=== PATIENT | male | born 1975 | race Caucasian/White ===

== ENCOUNTER 2020-07-01 06:06 | Outpatient (REF) | payer OTHER, SELFPAY | END 2020-07-01 06:07 | disposition home or self-care (01) | LOC: HO.LAB 06:06 | PROVIDERS: Visit Provider Internal Medicine | DX: Z20.828 Contact with and (suspected) exposure to other viral communicable diseases (principal) | CPT/HCPCS: C9803; U0003 ==

== ENCOUNTER 2022-01-31 21:46 | Emergency (ER) | payer BC, SELFPAY ==
--- NOTE | ~2022-01-31 | XR_ITS ---
EXAMINATION: XR HAND, RIGHT CLINICAL INFORMATION: Injury COMPARISON: None TECHNIQUE: PA, lateral, and oblique views of the right hand. FINDINGS: No acute fracture or dislocation. Nonspecific soft tissue prominence and/or swelling overlying the dorsal aspect of the fifth PIP joint. Correlate with exam. Small cysts noted in the triquetrum with sclerotic rims. Mild subchondral sclerosis and small osteophytes at the first CMC joint compatible with mild osteoarthritis. Joint spaces at the wrist are maintained. No chondrocalcinosis. MCP joint spaces are maintained. Mild marginal osteophyte formation/osteoarthritic change at the thumb IP joint, third DIP joint and fifth DIP joint. XR/XR hand RT 2V IMPRESSION: 1. No acute fracture or dislocation. 2. Soft tissue prominence/swelling overlying the dorsal aspect of the fifth PIP joint. Correlate with exam. 2. Mild osteoarthritic changes, as described.
[2022-01-31] MEDS: Ibuprofen 600 MG TABLET PO (21:59)
[2022-01-31 22:54] VITALS: BP 119/83; PULSE 67; RESP 18; TEMP 36.6; O2SAT 97; BMI 23.5
--- NOTE | 2022-01-31 23:58 | ED_ITS ---
HPI - Extremity Problem General Chief complaint: Extremity Injury, Upper Stated complaint: finger injury Time Seen by Provider: 01/31/22 23:49 Source: patient Mode of arrival: ambulatory History of Present Illness HPI Narrative: 46-year-old female with no significant past medical history presenting to the ED complaining of crush injury to right hand s/p using crowbar doing yard work and hand getting caught between bar and railing. Reports incident happened around 13:00. Reports small cut to right pinky. Denies numbness, tingling, weakness, decreased ROM, fever, retained foreign body. Tetanus up-to-date MD Complaint: extremity pain and extremity swelling Onset (ago): hour(s) Pain Consistency: constant Related Data Allergies Allergy/AdvReac Type Severity Reaction Status Date / Time No Known Allergies Allergy Unverified 05/07/20 15:49 Review of Systems Review of Systems: Constitutional: No Fever, No Chills ENT/Mouth: No Ear Pain, No Nasal Congestion, No sore throat, No Rhinorrhea, No Swallowing Difficulty Cardiovascular: No Chest Pain, No SOB Respiratory: No Cough, No Sputum Gastrointestinal: No Nausea, No Vomiting, No Diarrhea, No Constipation, No Abdominal pain Genitourinary: No Dysuria, No Hematuria, No Flank Pain Musculoskeletal: + joint pain, No Myalgias, + Joint Swelling Skin: + Skin Lesions, No rash Neuro: No Weakness, No Numbness, No Paresthesias Yes all other systems are reviewed and are negative [facility] Past Medical History Attestation statement: The following information was validated with the patient. Physical Exam Vital Signs: Vital Signs: Last Vital Signs Temp 97.8 F 01/31/22 22:54 Pulse 67 01/31/22 22:54 Resp 18 01/31/22 22:54 BP 119/83 01/31/22 22:54 Pulse Ox 97 01/31/22 22:54 O2 Del Method 01/31/22 22:54 BMI result Body Mass Index 23.5 Const: General: cooperative, healthy appearing, no acute distress, well developed, alert and awake Orientation/consciousness: patient oriented x3 Limitations: no limitations HEENT: Head: Yes normal to inspection and Yes atraumatic Ears: hearing grossly normal bilaterally General nose exam: Normal external nose present Face and sinus: Yes normal facial exam Eyes: General: appearance normal, both eyes and all related structures EOM: EOMs intact bilaterally Neck: Neck: Yes normal visual inspection and Yes no meningeal signs Resp: Effort & Inspection: normal respiratory effort and no respiratory distress Cardio: Rate: regular rate Heart sounds: S1 normal heart sound present and S2 normal heart sound present Peripheral pulses: radial pulses present Skin: Rashes: no rashes Neuro: General: patient oriented x3, tone normal and no meningeal signs Gait exam (Neuro): Normal gait present Extrem: Other: Right 5th digit with noted swelling and small 0.5cm laceration to the palmar aspect proximal to PIP. Tender to palpation. Full range of motion to digit/all digits and [id number] opposition intact. Cap refill WNL. Sensation intact to light touch. No snuffbox tenderness or wrist tenderness Course Course Course Narrative: XR hand RT 2V IMPRESSION: ? 1. No acute fracture or dislocation. 2. Soft tissue prominence/swelling overlying the dorsal aspect of the fifth PIP joint. Correlate with exam. 2. Mild osteoarthritic changes, as described. > results discussed with patient. Steri-Strips applied to small laceration MDM - Extremity (Nontraumatic) MDM Narrative Medical decision making narrative: 46-year-old female with no significant past medical history presenting to the ED complaining of crush injury to right hand s/p using crowbar doing yard work and hand getting caught between bar and railing. On exam vital signs stable, NAD, nontoxic appearing, physical exam as above. Concern for crush injury including fracture vs open fracture vs sprain vs contusion Plan: X-rays, Steri-Strips wound Medical Records Attestation: I reviewed the patient's medical records. Lab Data Attestation: I reviewed the patient's lab results. Discharge Plan Discharge Clinical Impression: Crush injury to finger, Laceration of finger Patient Disposition: Home, Self-Care Instructions: Finger Laceration (ED), Crush Injury (ED) Additional Instructions: Your x-ray does not show any fracture or dislocation. You do have osteoarthritic changes in your hand. Keep Steri-Strips on, dry and clean. If cut begins to look infected, there is redness around, drainage or you fever please return to the emergency department Referrals: Kiran Eastman MD [Primary Care Provider] -
== END 2022-02-01 00:44 | disposition home or self-care (01) ==
PROVIDERS: Emergency Provider Internal Medicine; PCP Internal Medicine
DX: S61.216A Laceration without foreign body of right little finger without damage to nail, initial encounter (principal); S67.196A Crushing injury of right little finger, initial encounter; W23.1XXA Caught, crushed, jammed, or pinched between stationary objects, initial encounter; Y93.H9 Activity, other involving exterior property and land maintenance, building and construction; Y92.017 Garden or yard in single-family (private) house as the place of occurrence of the external cause; Y99.9 Unspecified external cause status
CPT/HCPCS: 73120; 99283